=== PATIENT | female | born 1960 | race African-American/Black ===

== ENCOUNTER 2018-05-17 20:38 | Emergency (ER) | payer OTHER ==
--- NOTE | 2018-05-17 20:54 | EDPHY ---
H & P Stated Complaint: chest pressure and vomiting with chills Time Seen by Provider: 05/17/18 20:56 HPI/ROS: CHIEF COMPLAINT: Chest pain, anxiety, N/V HISTORY OF PRESENT ILLNESS: The patient is a 57 y/o female with a history of hypertension and small bowel resections arriving with her complaining of nausea, anxiety, vomiting, and chest pain. She woke up today feeling poorly. She has baseline pain in her right knee since knee replacement surgery, but today the pain was worse than usual (no knee redness or swelling, no knee trauma ). This seemed to trigger nausea and general malaise. By about 13:00, about 8 hours ago, she vomited. At this point all her symptoms worsened in severity. She developed right-sided chest pain that has been constant and non-radiating since onset and says, "my whole insides feel really anxious." She vomited a second time at 17:00 and this was nonbloody. She had intermittent diaphoresis through the day. She reports chronic diarrhea since prior resections for small bowel obstructions, but feels her symptoms today do not feel similar to the symptoms preceding the need for her resections. She denies history of inflammatory bowel disease. She had a mild cold last week that is resolving. She notes her BP has been running higher this week, around 170 systolic. Her knee pain improved after using a Salonpas patch. REVIEW OF SYSTEMS: A ten system review of systems was performed and is negative with the exception of the items mentioned in the HPI. Past medical history: 1. Small bowel syndrome with prior obstructions 2. Hypertension - Procardia, losartan, Bystolic 3. Anxiety - Clonazepam in the past 4. Kidney stones Past surgical history: 1. Right knee replacement - 2014, 2016 2. Terminal ileum and small bowel resections for SBOs Family history: Diabetes, cancers, heart disease, hypertension Social history: Nonsmoker. Drinks whiskey daily. at bedside. Employed. PCP: Faisal General Appearance: Alert. Vital signs reviewed. BP 195/131. Eyes: Pupils equal and round, no conjunctival injection, no discharge. Anicteric. ENT, Mouth: Mucous membranes are moist, no oropharyngeal erythema or edema. Neck: No lymphadenopathy, supple. Respiratory: Lungs are clear to auscultation; no wheezes, rales, or rhonchi. Chest: Anterior tenderness and small area of erythema to the right side of the sternum about 3 finger-breadths below the clavicle. She has been massaging that area. Cardiovascular: Regular rate and rhythm; no murmur, rub, or gallop. Gastrointestinal: Abdomen is soft, LLQ tenderness, no masses or organomegaly, bowel sounds normal. Skin: Warm and dry, no rashes on exposed skin, normal color. Back: Nontender to palpation over the thoracolumbar spine. No CVAT. Extremities: No lower extremity edema, no calf tenderness or swelling. Neurological: Alert and oriented. Moving all four extremities easily and equally. Psychiatric: Normal affect. - Personal History Current Tetanus/Diphtheria Vaccine: Yes Current Tetanus Diphtheria and Acellular Pertussis (TDAP): Yes Tetanus Vaccine Date: 2008 - Medical/Surgical History Hx Asthma: No Hx Chronic Respiratory Disease: No Hx Diabetes: No Hx Cardiac Disease: No Hx Renal Disease: No Hx Cirrhosis: No Hx Alcoholism: No Hx HIV/AIDS: No Hx Splenectomy or Spleen Trauma: No Other PMH: anxiety,HTN, small bowel syndrome, kidney stone - Social History Smoking Status: Former smoker Constitutional: Initial Vital Signs Temperature (C) 37.2 C 05/17/18 20:39 Heart Rate 77 05/17/18 20:39 Respiratory Rate 16 05/17/18 20:39 Blood Pressure 195/131 H 05/17/18 20:39 O2 Sat (%) 95 05/17/18 20:39 O2 Delivery Mode Room Air Allergies/Adverse Reactions: indomethacin [From Indocin] Allergy (Intermediate, Verified 05/17/18 20:43) WELTS indomethacin sodium [From Indocin] Allergy (Intermediate, Verified 05/17/18 20: 43) WELTS morphine [Morphine] Allergy (Intermediate, Verified 05/17/18 20:43) Hives Sulfa (Sulfonamide Antibiotics) Allergy (Intermediate, Verified 05/17/18 20:43) WELTS chlorhexidine gluconate [From Hibiclens] Allergy (Verified 05/17/18 20:43) Itching Home Medications: Medication Instructions Recorded Cyanocobalamin [Vitamin B12] 1,000 mcg IM Q14D 02/16/15 Hydrocodone/Acetaminophen [[place] 1 - 2 tab PO Q4H PRN 03/13/15 5/325 (RX)] Bystolic 05/17/18 Fentanyl 05/17/18 Losartan Potassium 05/17/18 Procardia Xl 05/17/18 Medical Decision Making - Diagnostics EKG Interpretation: 12 lead EKG is interpreted in [place] by emergency department physician. No acute ischemic changes. ED Course/Re-evaluation: 57 y/o female with a history of hypertension and small bowel resections who presents with a 1-day history of nausea, vomiting, anxiety, and chest pain. She has mild LLQ tenderness on exam and is notably hypertensive here at 195/131. Exam otherwise unremarkable. Plan for IV, labs, EKG, chest x-ray, symptom management. 4mg IV Zofran and 1mg IV Ativan ordered. The 12 lead EKG was interpreted by myself. No acute ischemic findings. See hard copy and/or "tracemaster" electronic copy for interpretation. Patient re-evaluated at 9:30 p.m.. She is resting more comfortably, no longer feels anxious after receiving Ativan 1 mg IV. She continues to have right- sided while localized chest pain. D-dimer is elevated at 1.04. Will pursue CT angiogram to assess for PE. Her creatinine is elevated and she will receive [address] angiogram negative for PE. No pneumonia or other acute pulmonary disease noted. HEART score is 2, low risk for major cardiac event within the next 6 weeks. I reviewed this with her, she has shared in the decision making concerning her treatments in the emergency department. She declines a 2nd troponin and 2nd EKG. She has signed a form stating that I reviewed this with her. I am recommending follow up with her primary care physician. She has [employer] insurance and sees a [place] doctor. We reviewed the danger signs that should prompt her to be re-evaluated immediately. Differential Diagnosis: Chest pain including but not limited to myocardial ischemia, pulmonary embolus, chest wall pain, pleural inflammation and pulmonary infectious causes. - Data Points Laboratory Results: Laboratory Results 05/17/18 20:53 05/17/18 20:53 Medications Given: Discontinued Medications Sodium Chloride (Ns) 1,000 mls @ 0 mls/hr IV EDNOW ONE; Wide Open PRN Reason: Protocol Stop: 05/17/18 21:37 Last Admin: 05/17/18 21:42 Dose: 1,000 mls Lorazepam (Ativan Injection) 1 mg IVP EDNOW ONE Stop: 01/13/19 21:09 Last Admin: 05/17/18 21:15 Dose: 1 mg Ondansetron HCl (Zofran) 4 mg IVP EDNOW ONE Stop: 05/17/18 21:09 Last Admin: 05/17/18 21:14 Dose: 4 mg Point of Care Test Results: Chemistry 05/17/18 20:56 POC Troponin I 0.01 ng/mL ng/mL (0.00-0.08) Departure - Departure Disposition: Home, Routine, Self-Care Clinical Impression: Chest pain Qualifiers: Chest pain type: other chest pain Qualified Code(s): R07.89 - Other chest pain ; R07.8 - Other chest pain Condition: Good Instructions: Chest Pain (ED) Additional Instructions: Your creatinine today is elevated--the 1.4. This should be rechecked by her primary care doctor at [place]. You should also talk with the doctor at [place] about your elevated blood pressure readings. Talk with your doctor about your anxiety also. As we discussed, I am not certain what is causing you to have right-sided chest pain. I do not think that this is a heart problem. I recommend that you take Tylenol, 650 mg, every 4 hr as needed for pain. Do not take more than 3000 mg of tylenol in a 24 hour time period. Do not take Motrin or Advil or other anti- inflammatories. Referrals: [facility] ,. [[facility] Groups for Call Sched] - As per Instructions Report Scribed for: Ariella Parisi Report Scribed by: Anupama Gomez Date of Report: 05/17/18 Time of Report: 21:13 Physician Review and Approval Statement: 05/17/18 20:54 Portions of this note were transcribed by the medical laboratory assistant. I, Dr. Ariella Parisi, personally performed the history, physical exam, and medical decision- making; and confirmed the accuracy of the information in the transcribed note.
[2018-05-17] MEDS ORDERED: LORazepam 2 MG/ML INJ IVP ONE (21:08)
[2018-05-17] MEDS ORDERED: ONDANSETRON 4 MG/2 ML VIAL IVP ONE (21:08)
[2018-05-17 21:13] LABS: PLATELET COUNT 248 10^3/uL (150-400)
[2018-05-17] MEDS ORDERED: NS 1,000 ML IV ONE (21:36)
[2018-05-17] MEDS ORDERED: IOPAMIDOL (ISOVUE 370) 100 ML BTL IV ONE (21:40)
--- NOTE | 2018-05-17 22:26 | CPEKG ---
Test Reason : OPEN Blood Pressure : / mmHG Vent. Rate : 075 BPM Atrial Rate : 075 BPM P-R Int : 150 ms QRS Dur : 085 ms QT Int : 367 ms P-R-T Axes : 061 034 052 degrees QTc Int : 410 ms Sinus rhythm Consider left ventricular hypertrophy Confirmed by Ariella Parisi ([id number]) on 05/17/2018 10:25:21 PM Referred By: Confirmed By:Ariella Parisi
[2018-05-17 23:33] VITALS: BP 166/109
== END 2018-05-17 23:32 | disposition home or self-care (01) ==
DX: R07.89 Other chest pain (principal); R11.2 Nausea with vomiting, unspecified; F41.9 Anxiety disorder, unspecified; E86.9 Volume depletion, unspecified
CPT/HCPCS: 84484-ER; 96374; J2060; J2405; Q9967